=== PATIENT | female | born 1950 | race Caucasian/White ===

== ENCOUNTER 2019-05-15 11:51 | Emergency (ER) | payer MEDICARE, OTHER ==
[~2019-05-15] VITALS: Ht 172.7 cm; Wt 97.5 kg
[~2019-05-15 11:51] MED LIST: AMITRIPTYLINE H10 M1 PO; ASPIRIN325 PO; AVELOX 400 MG400 M1 PO; CALCIUM +D & M1 EAC1; CALCIUM 600 +1 EAC5 PO; DILTIAZEM HCL30 MG PO; FISH OIL 1,0001 EAC8 PO; GLIPIZIDE ER5 MG; GLUCOPHAGE1000 MG; GLUCOPHAGE1000 MG PO; GLUCOTROL; GLUCOTROL5 MG PO; GLUMETZA1000; LIPITOR40 MG PO; LISINOPRIL10 MG PO; PERCOCET 5-3251 EACH PO; PRADAXA150 MG PO; VICODIN 5-5001 EACH PO; ZESTRIL; ZOCOR
[2019-05-15 13:04] VITALS: BP 125/80
== END 2019-05-15 13:07 | disposition home or self-care (01) ==
LOC: M.ERS 11:51
DX: S92.354A Nondisplaced fracture of fifth metatarsal bone, right foot, initial encounter for closed fracture (principal); S50.812A Abrasion of left forearm, initial encounter; I10 Essential (primary) hypertension; I25.2 Old myocardial infarction; E11.9 Type 2 diabetes mellitus without complications; E78.00 Pure hypercholesterolemia, unspecified; F17.200 Nicotine dependence, unspecified, uncomplicated; Z88.1 Allergy status to other antibiotic agents; Z95.2 Presence of prosthetic heart valve; Z90.710 Acquired absence of both cervix and uterus; W18.2XXA Fall in (into) shower or empty bathtub, initial encounter; Y92.89 Other specified places as the place of occurrence of the external cause; Y93.89 Activity, other specified; Y99.8 Other external cause status

== ENCOUNTER 2020-03-20 14:06 | Emergency (ER) | payer MEDICARE, OTHER ==
[~2020-03-20] VITALS: Ht 172.7 cm; Wt 100.2 kg
[2020-03-20 15:25] LABS: ABSOLUTE BASOPHILS 0.1 thou/uL (0.0-0.2); ABSOLUTE EOSINOPHILS 0.2 thou/uL (0.0-0.7); ABSOLUTE LYMPHOCYTES 1.5 thou/uL (0.8-5.3); ABSOLUTE MONOCYTES 0.4 thou/uL (0.0-1.2); ABSOLUTE NEUTROPHILS 6.7 thou/uL (1.6-8.1); BASOPHILS 0.7 %; EOSINOPHILS 1.7 %; HEMATOCRIT 39.4 % (37.0-47.0); HEMOGLOBIN 13.2 gm/dL (12.0-15.0); LYMPHOCYTES 17.1 %; MCHC 33.4 g/dL (28.0-37.0); MCV 89.7 fL (80.0-100.0); MONOCYTES 4.8 %; MPV 9.5 fl. (7.2-11.1); NUCLEATED RBCS 0 /100WBC; PLATELET COUNT* 177 thou/uL (150-400); POLYS 75.7 %; RBC 4.39 mil/uL (4.20-5.00); RDW-CV 17.7 % (10.5-14.5); WBC 8.8 thou/uL (4.0-11.0)
[2020-03-20 15:30] LABS: CALCIUM 9.2 mg/dL (8.5-10.1); CREATININE 1.3 mg/dL (0.6-1.3); POTASSIUM 3.9 mmol/L (3.5-5.1)
[2020-03-20 15:31] LABS: APTT 31.2 Seconds (25.0-31.3); INR 1.2; PROTIME 12.8 Seconds (9.20-11.50)
[2020-03-20 15:35] LABS: ALBUMIN 3.3 g/dL (3.4-5.0); TOTAL BILIRUBIN 0.4 mg/dL (<0.1-1.0); TOTAL PROTEIN 7.7 g/dL (6.4-8.2)
[2020-03-20 15:59] LABS: URINE BILIRUBIN NEGATIVE (Negative); URINE BLOOD 3+ (Negative); URINE CLARITY CLEAR; URINE COLOR YELLOW; URINE GLUCOSE-RANDOM NEGATIVE (Negative); URINE KETONES NEGATIVE (Negative); URINE LEUKOCYTES-REFLEX NEGATIVE (Negative); URINE NITRITE-REFLEX NEGATIVE (Negative); URINE PROTEIN NEGATIVE (Negative); URINE UROBILINOGEN 0.2 E.U./dl (0.2-1.0)
[2020-03-20 16:17] LABS: BACTERIA-REFLEX 1-9 Few /HPF (None Seen); CASTS None Seen /LPF (None Seen); CRYSTALS None Seen /LPF (None Seen); SQUAMOUS 0-3 Few /LPF (0-3); URINE RBC 0-2 Rare /HPF (0-2); URINE WBC-REFLEX 0-5 Rare /HPF (0-5)
[2020-03-20] MEDS ORDERED: GABAPENTIN600 M1 PO (17:24)
[2020-03-20] MEDS ORDERED: TOPROL XL50 MG PO (17:25)
[2020-03-20] MEDS ORDERED: FEROSUL325 M1 PO (17:26)
[2020-03-20] MEDS ORDERED: B12 ACTIVE1000 MCG PO (17:26)
[2020-03-20] MEDS ORDERED: DRIZALMA SPRINK30 MG PO (17:27)
[2020-03-20] MEDS ORDERED: XARELTO20 MG PO (17:28)
[2020-03-20] MEDS ORDERED: VITAMIN C500 M2 PO (17:28)
[2020-03-20 19:55] VITALS: BP 105/57
--- NOTE | 2020-03-21 10:39 | EKG ---
[place] [address] ELECTROCARDIOGRAM REPORT Name: JETLIZ ZOHAIB Room: [facility]#: [id number] Admission: 03/20/20 Attend Phys: Discharge: 03/20/20 Date of : 54 Date of Service: 03/20/20 1551 Report #: [id number] THIS REPORT FOR: //name// [facility] ED Test Date: 2020-03-20 Test Time: 15:51:15 Pat Name: LIZ CHAUDHARY Department: Room: Gender: Bankruptcy Paralegal: Farooq : 1950 Requested By: Claire Mena Order Number: [id number] MD: Igor Lopez Measurements Intervals [place] Rate: 63 P: [place]: QRS: 32 QRSD: 94 T: 48 QT: 462 QTc: 474 Interpretive Statements Atrial fibrillation Compared to ECG 02/23/2012 15:16:19 Sinus rhythm no longer present Electronically Signed On 03-21-2020 10:38:46 CDT by Igor Lopez [email or web address] <ELECTRONICALLY SIGNED> By: Igor Lopez MD, [facility] 03/21/20 1038 1551 1551 Igor Lopez MD, [facility] /EPI
== END 2020-03-20 19:55 | disposition short-term general hospital (02) ==
LOC: M.ERS 14:06
PROVIDERS: Nurse Practitioner Family
DX: K92.2 Gastrointestinal hemorrhage, unspecified (principal); R19.07 Generalized intra-abdominal and pelvic swelling, mass and lump; N89.8 Other specified noninflammatory disorders of vagina; K64.5 Perianal venous thrombosis; E11.9 Type 2 diabetes mellitus without complications; E78.00 Pure hypercholesterolemia, unspecified; I10 Essential (primary) hypertension; I48.91 Unspecified atrial fibrillation; Z95.5 Presence of coronary angioplasty implant and graft; Z90.710 Acquired absence of both cervix and uterus; Z88.1 Allergy status to other antibiotic agents